=== PATIENT | male | born 1985 | race Caucasian/White ===

== ENCOUNTER 2017-12-25 08:15 | Emergency (ER) | payer SELFPAY ==
[~2017-12-25] VITALS: Ht 175.3 cm; Wt 68.0 kg
[2017-12-25 08:52] LABS: BASOPHILS % 0.3 % (0.0-1.0); EOSINOPHILS # (AUTO) 0.1 (0.0-0.4); EOSINOPHILS % 1.6 % (0.0-6.0); HEMATOCRIT 36.4 % (38.2-49.6); HEMOGLOBIN 12.2 g/dL (14.0-18.0); LYMPHOCYTES # (AUTO) 2.5 (1.0-3.2); LYMPHOCYTES % 32.5 % (18.0-39.1); MEAN CORPUSCULAR HEMOGLOBIN 31.1 pg (28-32); MEAN CORPUSCULAR HGB CONC 33.5 g/dL (31-35); MEAN CORPUSCULAR VOLUME 92.9 fL (81-99); MONOCYTES # (AUTO) 0.7 (0.2-0.8); MONOCYTES % 9.3 % (4.4-11.3); NEUTROPHILS # (AUTO) 4.2 (2.1-6.9); PLATELET COUNT 380 x10e3/uL (140-360); RED BLOOD COUNT 3.92 x10e6/uL (4.3-5.7); RED CELL DISTRIBUTION WIDTH 12.6 % (11.7-14.4)
--- NOTE | 2017-12-25 09:00 | Diagnostic Imaging Report ---
PROCEDURE:CHEST SINGLE (PORTABLE) TECHNIQUE:Portable AP chest INDICATION:Chest pain COMPARISON:None. FINDINGS: The lungs are clear and symmetrically inflated. No pleural effusions. Normal heart size, mediastinal contour, and pulmonary vasculature. Intact skeleton. CONCLUSION: Normal portable chest. Dictated by: Jimi Vaz M.D. on 12/25/2017 at 9:00 Electronically approved by: Jimi Vaz M.D. on 12/25/2017 at 9:00
[2017-12-25 09:10] LABS: ALANINE AMINOTRANSFERASE 12 IU/L (0-55); ALBUMIN 3.7 g/dL (3.5-5.0); ALBUMIN/GLOBULIN RATIO 1.1 (0.8-2.0); ALKALINE PHOSPHATASE 57 IU/L (40-150); ANION GAP 12.4 mmol/L (8-16); BLOOD UREA NITROGEN 13 mg/dL (7-26); BUN/CREATININE RATIO 14 (6-25); CARBON DIOXIDE 27 mmol/L (22-29); CHLORIDE 111 mmol/L (98-107); CREATINE KINASE 132 IU/L (30-200); CREATININE, SERUM 0.93 mg/dL (0.72-1.25); EST GLOMERULAR FILTRATION RATE > 60 ML/MIN (60-); GLUCOSE 99 mg/dL (74-118); POTASSIUM 3.4 mmol/L (3.5-5.1); SODIUM 147 mmol/L (136-145)
[2017-12-25] MEDS ORDERED: IOPAMIDOL 370 MG/ML 200 ML INFUS..BTL INJ ONE (10:18)
[2017-12-25] MEDS ORDERED: SODIUM CHLORIDE 0.9% 50ML 50 ML ONE (10:18)
--- NOTE | 2017-12-25 10:34 | Diagnostic Imaging Report ---
CORRECTION Corrected on: 12/25/2017; Dictated by: Jimi Vaz M.D. on 12/25/2017 at 10:35 Electronically approved by: Jimi Vaz M.D. on 12/25/2017 at 10:35 PROCEDURE:CT CHEST WITH CONTRAST COMPARISON:None. INDICATIONS:Chest pain TECHNIQUE: Pulmonary artery phase CT chest after ministration of 67 mL Isovue-370 intravenous contrast. Multiplanar reformatted images. DLP: 543.32 FINDINGS: Lungs: Multifocal nodular groundglass opacity predominantly in the lower lobes and right middle lobe. For example, right middle lobe image 93, right lower lobe image 90 and left lower lobe image 90, series 3. The largest right lower lobe nodule measures up to 1.3 x 0.9 cm (image 90). No cavitation. Airways: Normal Pleura: Normal Lymph nodes: Normal Pulmonary arteries: Normal. No filling defects. Thoracic aorta and great vessels: Normal Heart and pericardium: Normal Subdiaphragmatic organs: Image segments are normal Skeleton: Normal Soft tissues: Normal CONCLUSION: 1. No pulmonary embolism. 2. Bilateral lower lobe sub-solid nodular opacities. Recommend correlation for pneumonia. Followup CT chest recommended in 3 months to document treatment response/followup ground glass nodules. Dictated by: Jimi Vaz M.D. on 12/25/2017 at 10:34 Electronically approved by: iJmi Vaz M.D. on 12/25/2017 at 10:34
[2017-12-25 11:22] VITALS: BP 119/67
== END 2017-12-25 11:47 | disposition home or self-care (01) ==
LOC: ER 08:15
DX: R07.89 Other chest pain (principal); E87.6 Hypokalemia; E78.5 Hyperlipidemia, unspecified; S61.212A Laceration without foreign body of right middle finger without damage to nail, initial encounter; W45.8XXA Other foreign body or object entering through skin, initial encounter
CPT/HCPCS: 36415; 71045; 71260; 80053; 82550; 82553; 84484; 85025; 85379; 93005; 99284; Q9967

== ENCOUNTER 2017-12-26 14:31 | Emergency (ER) ==
[~2017-12-26] VITALS: Ht 175.3 cm; Wt 68.0 kg
--- OUTSIDE RECORDS SUMMARY | 2017-12-26 14:34 | XMS REPORT | Continuity of Care Document ---
Author Author [facility] Organization [facility] Address [address] [place] [address] Phone Unavailable Care Team Providers Care Destination Coordinator Name Role Phone NO, PCP PCP Unavailable Advance Directives Directive Response Recorded Date/Time Does the patient have an advance directive? No 12/25/17 8:21am If yes, is advance directive on file with [facility]? No 12/25/17 8:21am If not on file with [facility] will patient provide a copy? No 12/25/17 8:21am Do you have a Directive to Physician? No 12/25/17 8:21am Do you have a Medical Power of Jail Officer? No 12/25/17 8:21am Do you have an out of hospital Do Not Resuscitate Order? No 12/25/17 8:21am Do you have any special needs we should be aware of? No 12/25/17 8:21am Do you have a support person here with you today? No 12/25/17 8:21am Did patient receive Notice of Privacy Practices? Yes 12/25/17 8:21am Did patient receive patient rights and responsibilities? Yes 12/25/17 8:21am Problems No problem information available. Medications No medication information available. Social History Smoking Status Start Date Stop Date Current every day smoker Hospital Discharge Instructions No hospital discharge instruction information available. Plan of Care Discharge Date 12/25/17 11:47am Disposition HOME, SELF-CARE Condition at Discharge Stable Instructions/Education Provided Chest Pain - Noncardiac Wound Care (General) Forms Provided Work/School Excuse Prescriptions See Medication Section Additional Instructions/Education FOLLOW UP WITH DOCTOR IN 1 WEEK RETURN TO ER FOR ANY WORSENING SYMPTOMS, TAKE ZITHROMAX PRESCRIBED, KEEP WOUND CLEAN AND DRY Functional Status No functional status information available. Allergies, Adverse Reactions, Alerts No known allergies. Immunizations No immunization information available. Vital Signs Acute Vital Signs Vital Response Date/Time Pulse Pulse Rate (adult) 67 bpm (60 - 90) 12/25/2017 11:22am Respiratory Rate 16 bpm (12 - 24) 12/25/2017 11:22am Blood Pressure 119/67 mm Hg 12/25/2017 11:22am Height 5 ft 9 in 12/25/2017 8:23am Weight 150 lb 12/25/2017 8:23am Body Mass Index 22.2 kg/m^2 12/25/2017 8:23am Results Laboratory Results Test Name Result Units Flags Reference Collection Date/Time Result Date/ Time Comments White Blood Count 7.56 x10e3/uL 4.8-10.8 12/25/2017 8:40am 12/25/2017 8 :53am Red Blood Count 3.92 x10e6/uL L 4.3-5.7 12/25/2017 8:40am 12/25/2017 8: 53am Hemoglobin 12.2 g/dL L 14.0-18.0 12/25/2017 8:40am 12/25/2017 8:53am Hematocrit 36.4 % L 38.2-49.6 12/25/2017 8:40am 12/25/2017 8:53am Mean Corpuscular Volume 92.9 fL 81-99 12/25/2017 8:40am 12/25/2017 8: 53am Mean Corpuscular Hemoglobin 31.1 pg 28-32 12/25/2017 8:40am 12/25/2017 8:53am Mean Corpuscular Hemoglobin Concent 33.5 g/dL 31-35 12/25/2017 8:40am 12/25/2017 8:53am Red Cell Distribution Width 12.6 % 11.7-14.4 12/25/2017 8:40am 2017 8:53am Platelet Count 380 x10e3/uL H 140-360 12/25/2017 8:40am 12/25/2017 8: 53am Neutrophils (%) (Auto) 56.0 % 38.7-80.0 12/25/2017 8:40am 12/25/2017 8: 53am Lymphocytes (%) (Auto) 32.5 % 18.0-39.1 12/25/2017 8:40am 12/25/2017 8: 53am Monocytes (%) (Auto) 9.3 % 4.4-11.3 12/25/2017 8:40am 12/25/2017 8: 53am Eosinophils (%) (Auto) 1.6 % 0.0-6.0 12/25/2017 8:4012/25/2017 8: 53am Basophils (%) (Auto) 0.3 % 0.0-1.0 12/25/2017 8:4012/25/2017 8:53am IM GRANULOCYTES % 0.3 % 0.0-1.0 12/25/2017 8:4012/25/2017 8:53am Neutrophils # (Auto) 4.2 2.1-6.9 12/25/2017 8:40am 12/25/2017 8:53am Lymphocytes # (Auto) 2.5 1.0-3.2 12/25/2017 8:4012/25/2017 8:53am Monocytes # (Auto) 0.7 0.2-0.8 12/25/2017 8:40am 12/25/2017 8:53am Eosinophils # (Auto) 0.1 0.0-0.4 12/25/2017 8:4012/25/2017 8:53am Basophils # (Auto) 0.0 0.0-0.1 12/25/2017 8:40am 12/25/2017 8:53am Absolute Immature Granulocyte (auto 0.02 x10e3/uL 0-0.1 12/25/2017 8: 4012/25/2017 8:53am D-Dimer Quantitative (PE/DVT) 0.82 ug/mLFEU H 0.00-0.45 12/25/2017 8: 40am 12/25/2017 9:05am Sodium Level 147 mmol/L H 136-145 12/25/2017 8:40am 12/25/2017 9:12am Potassium Level 3.4 mmol/L L 3.5-5.1 12/25/2017 8:40am 12/25/2017 9: 12am Chloride Level 111 mmol/L H 98-107 12/25/2017 8:40am 12/25/2017 9:12am Carbon Dioxide Level 27 mmol/L 22-29 12/25/2017 8:40am 12/25/2017 9: 12am Anion Gap 12.4 mmol/L 8-16 12/25/2017 8:40am 12/25/2017 9:12am Blood Urea Nitrogen 13 mg/dL 7-26 12/25/2017 8:40am 12/25/2017 9:12am Creatinine 0.93 mg/dL 0.72-1.25 12/25/2017 8:40am 12/25/2017 9:12am BUN/Creatinine Ratio 14 6-25 12/25/2017 8:40am 12/25/2017 9:12am Estimat Glomerular Filtration Rate > 60 ML/MIN 60- 12/25/2017 8:40am 9:12am Ranges were taken from the National Kidney Disease Education Program and the National Kid[employer] Foundation literature. Reference ranges: 60 or greater: Normal 16-59 (for 3 consecutive months): Chronic kidney disease 15 or less: Kidney failure Glucose Level 99 mg/dL 74-118 12/25/2017 8:40am 12/25/2017 9:12am Calcium Level 9.0 mg/dL 8.4-10.2 12/25/2017 8:4012/25/2017 9:12am Total Bilirubin < 0.3 mg/dL 0.2-1.2 12/25/2017 8:40am 12/25/2017 9: 12am Aspartate Amino Transf (AST/SGOT) 14 IU/L 5-34 12/25/2017 8:40am 2017 9:12am Alanine Aminotransferase (ALT/SGPT) 12 IU/L 0-55 12/25/2017 8:40am 9:12am Total Protein 7.0 g/dL 6.5-8.1 12/25/2017 8:40am 12/25/2017 9:12am Albumin 3.7 g/dL 3.5-5.0 12/25/2017 8:40am 12/25/2017 9:12am Globulin 3.3 g/dL 2.3-3.5 12/25/2017 8:40am 12/25/2017 9:12am Albumin/Globulin Ratio 1.1 0.8-2.0 12/25/2017 8:40am 12/25/2017 9: 12am Alkaline Phosphatase 57 IU/L 40-150 12/25/2017 8:40am 12/25/2017 9: 12am Creatine Kinase 132 IU/L 30-200 12/25/2017 8:40am 12/25/2017 9:12am Creatine Kinase MB 1.30 ng/mL 0-5.0 12/25/2017 8:40am 12/25/2017 9: 19am Troponin I < 0.001 ng/mL 0-0.300 12/25/2017 8:40am 12/25/2017 9:19am Procedures Procedure Status Date Provider(s) Computed tomography of chest with contrast Active 12/25/17 LEANDRO SANTOS MD Encounters Encounter Location Arrival/Admit Date Discharge/Depart Date Attending Provider Departed Emergency Room [facility] 12/25/17 8:15am 11:47am LEANDRO SANTOS MD
--- OUTSIDE RECORDS SUMMARY | 2017-12-26 14:34 | XMS REPORT ---
[facility] Address Unknown Phone Unavailable Care Team Providers Care Mobile Application Development Lead Name Role Phone LEANDRO SANTOS Unavailable Unavailable Problems This patient has no known problems. Allergies, Adverse Reactions, Alerts This patient has no known allergies or adverse reactions. Medications This patient has no known medications. Results Test Description Test Time Test Comments Text Results Atomic Results Result Comments CT CHEST W [place] [address] Patient Name: LICHA SPARKS MR #: [id number] : 1985 Age/Sex: 32/M Req #: [id number] [facility] Physician: Ordered by: LEANDRO SANTOS MD Report #: [id number] Location: ER Room/Bed: Procedure: [id number] CT/CT CHEST W Exam Date: 12/25/17 Exam Time: 940 REPORT STATUS: Signed CORRECTION Corrected on: 12/25/2017; Dictated by: Iliana Vaz M.D. on 12/25/2017 at 10:35 Electronically approved by: Iliana Vaz M.D. on 12/25/2017 at 10:35 PROCEDURE: CT CHEST WITH CONTRAST COMPARISON: None. INDICATIONS: Chest pain TECHNIQUE: Pulmonary artery phase CT chest after ministration of 67 mL Isovue-370 intravenous contrast. Multiplanar reformatted images. DLP : 543.32 FINDINGS: Lungs: Multifocal nodular groundglass opacity predominantly in the lower lobes and right middle lobe. For example, right middle lobe image 93, right lower lobe image 90 and left lower lobe image 90 , series 3. The largest right lower lobe nodule measures up to 1.3 x 0.9 cm ( image 90). No cavitation. Airways: Normal Pleura: Normal Lymph nodes: Normal Pulmonary arteries: Normal. No filling defects. Thoracic aorta and great vessels: Normal Heart and pericardium: Normal Subdiaphragmatic organs: Image segments are normal Skeleton: Normal Soft tissues: Normal CONCLUSION: 1. No pulmonary embolism. 2. Bilateral lower lobe sub-solid nodular opacities. Recommend correlation for pneumonia. Followup CT chest recommended in 3 months to document treatment response/followup ground glass nodules. Dictated by: Iliana Vaz M.D. on 12/25/2017 at 10:34 Electronically approved by: Iliana Vaz M.D. on 12/25/2017 at 10:34 Dictated By: ILIANA VAZ MD [id number] Transcribed By: CORBIN on 12/25/17 1035 COPY TO: LEANDRO SANTOS MD CHEST SINGLE (PORTABLE) [place] [address] Patient Name: LICHA SPARKS MR #: [id number] : 1985 Age/Sex: 32/M Req #: [id number] Adm Physician: Ordered by: LEANDRO SANTOS MD Report #: [id number] Location: ER Room/Bed: Procedure: [id number] DX/CHEST SINGLE (PORTABLE) Exam Date: 12/25/17 Exam Time: 0830 REPORT STATUS: Signed PROCEDURE: CHEST SINGLE (PORTABLE) TECHNIQUE: Portable AP chest INDICATION: Chest pain COMPARISON: None. FINDINGS: The lungs are clear and symmetrically inflated. No pleural effusions. Normal heart size, mediastinal contour, and pulmonary vasculature. Intact skeleton. CONCLUSION: Normal portable chest. Dictated by: Iliana Vaz M.D. on at 9:00 Electronically approved by: Iliana Vaz M.D. on 12/25/2017 at 9:00 Dictated By: ILIANA VAZ MD 9 Transcribed By: CORBIN on 12/25/17899 COPY TO: LEANDRO SANTOS MD
== END 2017-12-26 15:41 | disposition left against medical advice (07) ==
LOC: ER 14:31
DX: R07.89 Other chest pain (principal)
CPT/HCPCS: 93005